=== PATIENT | female | born 1940 | race Two or more races ===

== ENCOUNTER 2023-02-02 21:15 | Emergency (ER) | payer OTHER ==
[~2023-02-02] VITALS: Ht 154.9 cm; Wt 70.3 kg
--- NOTE | 2023-02-02 21:40 | NUR ---
PATIENT IS AAOX4, KYRGYZ SPEAKING, ABLE TO MAKE NEEDS KNOWN. CAME WITH IV RIA ON LEFT HAND G20 AND IV RIA G22 ON RIGHT FA.
--- NOTE | 2023-02-02 21:40 | NUR ---
[id number] FROM HOME C/O FEVER 100.3, & WEAKNESS. WAS D/C FROM [place] THIS TODAY FOR SEPSIS, [facility] ADMINISTERED PD320NI OF IVFLUID
--- NOTE | 2023-02-02 21:53 | NUR ---
EMT AT PT'S BEDSIDE FOR EKG
[2023-02-02] MEDS ORDERED: ACETAMINOPHEN ES 500 MG TABLET ONE (21:55)
[2023-02-02] MEDS ORDERED: ONDANSETRON HCL/PF 4 MG/2 ML VIAL ONE (21:55)
[2023-02-02] MEDS ORDERED: ONDANSETRON HCL/PF 4 MG/2 ML VIAL IV ONE (22:00)
[2023-02-02] MEDS ORDERED: IV NS 0.9% 1,000 ML BAG IV ONE (22:00)
[2023-02-02] MEDS ORDERED: ACETAMINOPHEN 325 MG TABLET PO ONE (22:00)
--- NOTE | 2023-02-02 22:02 | NUR ---
COVID SWAB DONE AND SENT TO LAB
--- NOTE | 2023-02-02 22:18 | NUR ---
GENERAL LABORER AT BEDSIDE
--- NOTE | 2023-02-02 22:24 | NUR ---
DOMENICO (GRANDDAUGHTER) [phone]
[2023-02-02 22:33] LABS: BASOPHILS % (AUTO) 0.5 % (0.0-2.0); EOSINOPHILS % (AUTO) 0.2 % (0.0-6.0); HEMATOCRIT 28 % (33-45); LYMPHOCYTES # (AUTO) 0.8 K/uL (0.8-4.8); LYMPHOCYTES % (AUTO) 10.1 % (20.0-44.0); MEAN CORPUSCULAR HGB CONC 32 g/dl (31.0-36.0); MEAN CORPUSCULAR VOLUME 86 fL (82-100); MONOCYTES # (AUTO) 0.6 K/uL (0.1-1.30); MONOCYTES % (AUTO) 7.3 % (2.0-12.0); NEUTROPHILS # (AUTO) 6.2 K/uL (1.8-8.9); NEUTROPHILS % (AUTO) 81.9 % (43.0-81.0); PLATELET COUNT (AUTO) 323 K/uL (150-450); RED BLOOD CELL COUNT(AUTO) 3.22 MIL/uL (4.0-5.2); WHITE BLOOD COUNT (AUTO) 7.6 K/uL (4.3-11.0)
[2023-02-02 22:50] LABS: CALCIUM, SERUM 8.3 mg/dL (8.5-10.1); CARBON DIOXIDE 24 mmol/L (21-32); CHLORIDE 104 mmol/L (98-107); CREATININE 0.7 mg/dL (0.6-1.3); GLUCOSE 116 mg/dL (74-106); POTASSIUM 3.8 mmol/L (3.5-5.1); SODIUM SERUM 135 mmol/L (136-145); UREA NITROGEN, BLOOD 12 mg/dL (7-18)
--- NOTE | 2023-02-02 22:55 | NUR ---
XRAY DONE AT BEDSIDE
[2023-02-02 23:04] LABS: ALANINE AMINOTRANSFERASE 16 U/L (12-78); ALBUMIN 2.2 g/dL (3.4-5.0); ALKALINE PHOSPHATASE 91 U/L (46-116); ASPARTATE AMINOTRANSFERASE 21 U/L (15-37); BILIRUBIN,DIRECT 0.1 mg/dL (0.0-0.2); BILIRUBIN,TOTAL 0.4 mg/dL (0.2-1.0); TOTAL PROTEIN, SERUM 5.4 g/dL (6.4-8.2)
--- NOTE | 2023-02-02 23:08 | NUR ---
URINE SPECIMEN SENT TO LAB
[2023-02-02 23:25] LABS: BILIRUBIN,URINE NEGATIVE (NEGATIVE); COLOR,URINE YELLOW (YELLOW); LEUKOCYTE ESTERASE ,URINE NEGATIVE (NEGATIVE); NITRITE, URINE NEGATIVE (NEGATIVE); PH,URINE 7.5 (5.0-8.0); PROTEIN,URINE NEGATIVE (NEGATIVE); UGLUCOSE NEGATIVE (NEGATIVE); UROBILINOGEN,URINE 0.2 EU/dL (0.2)
[2023-02-02] MEDS ORDERED: IV NS 0.9% 250 ML IV ONE (23:43)
[2023-02-02] MEDS ORDERED: IOHEXOL-300 100 ML VIAL IV ONE (23:43)
[2023-02-02] MEDS ORDERED: CT SWABBABLE VALVE TRANS SET 1 EA INFUS.SET MC ONE (23:43)
--- NOTE | 2023-02-02 23:51 | NUR ---
BROUGHT TO CT DEPT
[2023-02-03] MEDS ORDERED: LEVOFLOXACIN 750 MG /D5W 150ML PIGGYBACK IV ONE
[2023-02-03] MEDS ORDERED: IV NS 0.9% 1,000 ML BAG IV ONE
[2023-02-03] MEDS ORDERED: LEVOFLOXACIN 750 MG /D5W 150ML 150 ML IV ONE (00:05)
--- NOTE | 2023-02-03 01:48 | NUR ---
[employer] WORKER AT PT'S BEDSIDE FOR REPEAT TROPONIN
--- NOTE | 2023-02-03 01:56 | NUR ---
[facility] PAGED PER MADAI.
[2023-02-03] MEDS ORDERED: AZTREONAM 1 G in IV NS 0.9% 100 ML IV ONE (02:00)
[2023-02-03] MEDS ORDERED: AZTREONAM 1 G VIAL ONE (02:20)
--- NOTE | 2023-02-03 02:24 | NUR ---
DR AJ DO ON PHONE CALL WITH [facility]. [facility]
--- NOTE | 2023-02-03 02:40 | NUR ---
SPOKE TO LES OF [facility] . UPDATE GIVEN. TO CALL HER BACK ONCE 2ND TROP RESULT WILL COME OUT.
--- NOTE | 2023-02-03 03:01 | NUR ---
CALLED LES OF [facility]. UPDATED HER WITH PT LATEST TROP RESULT WHICH IS 9
--- NOTE | 2023-02-03 04:56 | NUR ---
PT ACCEPTED TO [facility] BY DR MARY. # FOR REPORT [phone]. [facility] ETA [phone].
--- NOTE | 2023-02-03 06:18 | NUR ---
REPORT GIVEN TO JAC GRAJEDA
--- NOTE | 2023-02-03 07:36 | NUR ---
NEW ETA [id number] FOR TRANSPORT. PER [facility].
--- NOTE | 2023-02-03 08:09 | NUR ---
Transport at bedside
[2023-02-03 08:13] VITALS: BP 132/91
== END 2023-02-03 08:13 | disposition short-term general hospital (02) ==
LOC: ER 21:20
DX: A41.9 Sepsis, unspecified organism (principal); J18.9 Pneumonia, unspecified organism; D64.9 Anemia, unspecified; R11.2 Nausea with vomiting, unspecified; Z20.822 Contact with and (suspected) exposure to COVID-19; Z88.0 Allergy status to penicillin
CPT/HCPCS: 99291; 71250; 71045; 96375; 87426; 99292; 93005; 85025; 80048; 87086; 83605; 80076; 81003; 36415 ×2; 84484 ×2; 85730; 83880; 87040 ×2; 87081; 96365; 96367; 82962; J2405; J7030 ×4; J7050; Q9967; C9803; J3490 ×2; J7040; J1956; A4223